=== PATIENT | male | born 1955 | race Caucasian/White ===

== ENCOUNTER 2019-12-24 16:16 | Observation (INO) | payer MEDICARE, SELFPAY ==
[2019-12-24] VITALS (11 sets, daily range): BP systolic 128–177; BP diastolic 73–90; PULSE 92–126; RESP 12–27; TEMP 36.7–37.7; O2SAT 92–100
--- NOTE | ~2019-12-24 | XR_ITS ---
EXAMINATION: XR chest 2V EXAM DATE: 12/24/2019 17:22 INDICATION: Increasing shortness of breath, cough. History COPD. TECHNIQUE: Frontal and lateral projections of the chest obtained and reviewed. There is no prior sydnie dy for comparison. FINDINGS: There is patchy left greater than right basilar airspace disease most likely multifocal pn eumonia, but please clinically correlate. There are 2 left upper lobe nodular densities likely granul omas. Recommend follow-up low-dose chest CT in one month after acute symptoms resolve. The main, cent ral pulmonary arteries are dilated which can indicate elevated pulmonary arterial pressure, pulmonary arterial hypertension. Normal heart size. Moderate hyperinflation. No pneumothorax or pleural effusi on. The bones are osteopenic. There are bony degenerative changes. IMPRESSION: 1. Multisegmental left basilar, smaller amount of right basilar airspace disease probably bronchopne umonia. 2. Two Left upper lobe nodular densities; recommend one-month follow-up low-dose chest CT after acut e symptoms resolve. Reviewed, dictated and finalized at location [facility] [employer] IMPRESSION: 1. Multisegmental left basilar, smaller amount of right basilar airspace disea se probably bronchopneumonia. 2. Two Left upper lobe nodular densities; recommend one-month follow-up low-do se chest CT after acute symptoms resolve.
--- NOTE | 2019-12-24 16:19 | ECG_ITS ---
Measurements Intervals [place] Rate: 120 P: 76 UT: 177 QRS: 57 QRSD: 100 T: 59 QT: 296 QTc: 420 Interpretive Statements SINUS TACHYCARDIA BASELINE ARTIFACT- I, II, III, AVR, AVL, AVF, V1-V6 ABNORMAL ECG Electronically Signed On 12-24-2019 17:18:14 [employer] by Anurag Salinas D.O.
[2019-12-24 16:34] LABS: Basophils Percent Auto 0.2 % (0.2-1.2); Eosinophils Percent Auto 0.1 % (0-4.4); Hematocrit 45.8 % (42.0-52.0); Hemoglobin 14.7 g/dL (14.0-18.0); Immature Granulocyte Absolute 0.09 K/mm3 (0.00-0.031); Immature Granulocyte Percent A 0.5 % (0-0.5); Lymphocytes Absolute Auto 0.91 K/mm3 (0.9-3.2); Lymphocytes Percent Auto 5.4 % (18.3-44.2); Mean Corpuscular HGB Conc 32.1 g/dl (32-36); Mean Corpuscular Hemoglobin 28.8 pg (26-34); Mean Corpuscular Volume 89.8 fl (80-100); Mean Platelet Volume 12.2 fl (7.4-10.4); Monocytes Absolute Auto 1.4 K/mm3 (0.1-0.6); Monocytes Percent Auto 8.2 % (2.6-8.5); Neutrophils Absolute Auto 14.5 K/mm3 (1.3-6.7); Neutrophils Percent Auto 85.6 % (45.5-73.1); Platelet Count Result 184 k/mm3 (150-375); Red Cell Distribution Width 12.5 % (11.5-14.5); White Blood Count 16.9 K/mm3 (4.5-10.0)
--- NOTE | 2019-12-24 16:37 | ED.SOB ---
HPI - SOB/Dyspnea General Chief Complaint: Shortness of Breath/Dyspnea Stated Complaint: SOB Time Seen by Provider: 12/24/19 16:21 Source: patient and RN notes reviewed Mode of arrival: EMS Limitations: no limitations History of Present Illness HPI Narrative: Pt is a 64 y/o male presenting to the ED c/o SOB with exertion. Pt reports he has been experiencing SOB with exertion for the past 10 days. Pt states he has a Hx of COPD and Emphysema, and notes he is currently taking Incruse, Advair, and Albuterol, but states he no longer has a nebulizzer. Pt states he normally walks about 30 minutes per day on the treadmill but has been unable to for the past 10 days. Pt also reports productive cough with green phlegm for 5 days, low-grade fever, and mild diarhhea, but denies N/V or BLE swelling. Pt states he presented to the ED today after calling his PCP reporting his Sx's have worsened and notes he was instructed to present here. Pt denies any Hx of Cardiovascular issues. Pertinent past history: COPD Onset (ago): day(s) () Associated symptoms: fever (Low-grade), cough (Productive with green phlegm) and other (Mild) Related Data Home Medications Medication Instructions Recorded Confirmed Vitamin D3 Complete 12/24/19 albuterol sulfate INHALATION 12/24/19 cetirizine [Zyrtec] mg 12/24/19 fluticasone propion-salmeterol INHALATION 12/24/19 [Advair Diskus] multivitamin 12/24/19 trazodone 12/24/19 umeclidinium [Incruse Ellipta] INHALATION 12/24/19 Allergies Allergy/AdvReac Type Severity Reaction Status Date / Time No Known Allergies Allergy Verified 12/24/19 16:41 Review of Systems Review of Systems: All systems reviewed & are unremarkable except as noted in HPI and below Constitutional: Constitutional: Reports fever(s) (Low-grade) Respiratory: Respiratory: Reports cough (Productive with green phlegm) and Reports dyspnea on exertion Gastrointestinal: Gastrointestinal: Reports diarrhea (Mild), Denies nausea and Denies vomiting Integumentary/Breasts: Skin/Breast: Denies swelling (BLE) PMFSH Past Medical History Medical History COPD (chronic obstructive pulmonary disease) Emphysema of lung Surgical History Surgical History No significant past surgical history Family History Family History Grandparent Family history of malignant neoplasm Father Family history of malignant neoplasm of urinary bladder Social History Social History Alcohol intake: never Gender identity (if verbalized by the patient): Male Exam Const: General: healthy appearing, no acute distress and well developed Nutritional Appearance: well nourished Orientation/consciousness: patient oriented x3 (alert) and Other orientation findings (Alert) Limitations: no limitations HENMT: Head: normocephalic and atraumatic Ears: external ears normal General nose exam: No nasal discharge present and no epistaxis Face and sinus: face symmetric Mouth: Yes lip normal and Yes tongue normal Throat: other (No exudate, no erythema) Eyes: Conjunctivae: conjunctivae normal Sclera: sclerae normal EOM: EOMs intact bilaterally Neck: Neck: full ROM and supple Thyroid: thyroid normal Chest: Chest palpation & inspection: no tenderness Resp: Auscultation: clear to auscultation bilaterally, no rales, no rhonchi, no wheezes, diminished lung sounds (Throughout) and other (breath sounds equal) Cardio: Rate: tachycardic Rhythm: regular rhythm Heart sounds: no gallops and no murmurs GI: Inspection: non-distended GI Palp: No abdominal tenderness and Yes Soft to palpation Auscultation: other (bowel sounds present) Back/Spine/Pelvis: Thoracic/Lumbar Spine: thoracic and lumbar spine normal to inspection Skin: General skin exam: normal color and no rashes or lesions noted Neuro: G
[2019-12-24 16:45] LABS: Blood Urea Nitrogen 16 mg/dL (9-20); Calcium 9.2 mg/dL (8.4-10.2); Carbon Dioxide 27 mmol/L (22-30); Chloride 93 mmol/L (98-107); Estimated Glomerular Filt Rate > 60; Glucose 127 mg/dL (75-110); Potassium 4.4 mmol/L (3.4-5.0); Sodium 136 mmol/L (137-145)
[2019-12-24] MEDS: IPRATROPIUM BR 0.02% INH SOLN 0.5 MG/2.5 ML VIAL INHALATION (17:02)
[2019-12-24] MEDS: ALBUTEROL SULFATE NEB 2.5 MG/0.5 ML INH 5 MG INHALATION (17:02)
[2019-12-24 17:45] LABS: NT Pro B Type Natriuretic Pept 175 PG/ML (5-100)
[2019-12-24] MEDS: LACTATED RINGERS 1,000 ML 999 ML IV CONT (20:09)
--- NOTE | 2019-12-24 22:25 | ADMGEN ---
This patient, Artur Hall, was admitted to Medical Room 255-. Patient/family oriented to hospital policies and general routines including ID bracelet, bed and alarms, visiting hours, pain management, procedures, bathroom and other care routines, personal items, smoking policy, room service/diet, and visiting hours. Valuables list has been completed. Information on how to activate the Rapid Response Team has been discussed. Patient/Family are encouraged to report perceived risks to care and to ask questions if they do not understand what they are told or what they should do.
[2019-12-24] MEDS: AZITHROMYCIN 250 MG TABLET 500 MG PO (22:42)
[2019-12-24] MEDS: LACTATED RINGERS 1,000 ML 125 ML IV CONT (22:43)
--- NOTE | 2019-12-24 23:37 | PM.IMHP ---
H&P: HPI History of Present Illness Chief complaint: pneumonia,copd,influenza Narrative: This is a pleasant 65 year old male with known end stage COPD, RA who presented to the hospital with a complaint of shortness of breath for the past 10 days with productive cough of greenish sputum for the past 4-5 days w/ intermittent fevers and wheezing. He has had generalized weakness and diarrhea. No nausea, vomiting or LE swelling. He denies any chest pain, palpitations, sore throat, ear pain, abdominal pain, dysuria, hematuria or rectal bleeding. The patient was evaluated in the ER tonight and found to have a WBC of 16,900. CXR demonstrated multisegmental left basilar, smaller amount of right basilar airspace disease probably bronchopneumonia and two Left upper lobe nodular densities. The patient tested positive for influenza in the ER. No other complaints. Review of Systems Review of Systems: All systems reviewed & are unremarkable except as noted in HPI and below PMFSH Past Medical History Medical History (Updated 12/25/19 @ 00:34 by Reagan Winter MD) Brain aneurysm COPD (chronic obstructive pulmonary disease) Emphysema of lung Rheumatoid arthritis Surgical History Surgical History No significant past surgical history Family History Family History Grandparent Family history of malignant neoplasm Father Family history of malignant neoplasm of urinary bladder Social History Social History Smoking status: Former smoker Alcohol intake: never Substance use: never Gender identity (if verbalized by the patient): Male Agree to blood products: Yes Meds Home Medications and Allergies Home Medications Medication Instructions Recorded Confirmed Type Vitamin D3 Complete 1 tab/day BYMOUTH DAILY 12/24/19 12/24/19 History albuterol sulfate See Rx Instructions .ROUTE .COMPLEX 12/24/19 12/24/19 History aspirin [Aspir-81] 81 mg PO DAILY 12/24/19 12/24/19 History cetirizine [Zyrtec] 10 mg PO DAILY 12/24/19 12/24/19 History fluticasone propion-salmeterol 1 inh INHALATION BID 12/24/19 12/24/19 History [Advair Diskus] multivitamin 1 tab/day BYMOUTH DAILY 12/24/19 12/24/19 History trazodone 75 mg PO HS PRN 12/24/19 12/24/19 History umeclidinium [Incruse Ellipta] 62.5 mcg INHALATION DAILY 12/24/19 12/24/19 History Allergies Allergy/AdvReac Type Severity Reaction Status Date / Time No Known Allergies Allergy Verified 12/24/19 16:41 Vital Signs Vital Signs - 24 hr 12/24/19 16:19 12/24/19 16:24 12/24/19 17:02 Temperature 37.2 C Pulse Rate 121 H 116 H 112 H Respiratory Rate 24 H 24 H Blood Pressure 177/90 H Pulse Oximetry 93 92 12/24/19 17:13 12/24/19 17:23 12/24/19 18:51 Temperature 37.7 C H 37.3 C Pulse Rate 113 H 126 H 106 H Respiratory Rate 24 H 26 H 27 H Blood Pressure 157/83 H 143/75 H Pulse Oximetry 93 94 12/24/19 19:17 12/24/19 20:13 12/24/19 21:09 Temperature 37.3 C Pulse Rate 99 96 98 Respiratory Rate 12 12 21 H Blood Pressure 135/74 135/81 135/81 Pulse Oximetry 100 96 100 12/24/19 22:00 12/24/19 22:02 Temperature 36.7 C 37.3 C Pulse Rate 102 H 92 Respiratory Rate 22 H 20 Blood Pressure 158/77 H 128/73 Pulse Oximetry 96 97 Exam Const: General: cooperative, alert, awake and anxious Nutritional Appearance: well nourished Orientation/consciousness: patient oriented x3 HENMT: Head: normal to inspection General nose exam: Normal external nose present Face and sinus: normal facial exam Mouth: Yes Normal oral and palatal mucosa present and Yes oropharynx normal Eyes: Pupils: Equal, round and reactive pupils present EOM: EOMs intact bilaterally Neck: Neck: supple and no JVD Thyroid: thyroid normal Lymphatic: lymphadenopathy not noted Resp: Effort & Inspection: normal respiratory effort Au
[2019-12-25] VITALS (12 sets, daily range): BP systolic 123–143; BP diastolic 67–71; PULSE 93–111; RESP 20–24; TEMP 36.1–38.1; O2SAT 95–98; BMI 23.8
[2019-12-25] MEDS: IPRATROPIUM BR 0.02% INH SOLN 0.5 MG/2.5 ML VIAL INHALATION ×4 (02:37→20:20)
[2019-12-25] MEDS: ALBUTEROL SULFATE NEB 2.5 MG/0.5 ML INH 5 MG INHALATION ×4 (02:37→20:18)
[2019-12-25 05:28] LABS: Basophils Percent Auto 0.1 % (0.2-1.2); Hematocrit 39.8 % (42.0-52.0); Hemoglobin 12.6 g/dL (14.0-18.0); Immature Granulocyte Absolute 0.04 K/mm3 (0.00-0.031); Immature Granulocyte Percent A 0.5 % (0-0.5); Lymphocytes Percent Auto 3.7 % (18.3-44.2); Mean Corpuscular HGB Conc 31.7 g/dl (32-36); Mean Corpuscular Hemoglobin 28.2 pg (26-34); Mean Platelet Volume 12.2 fl (7.4-10.4); Monocytes Absolute Auto 0.2 K/mm3 (0.1-0.6); Monocytes Percent Auto 2.9 % (2.6-8.5); Neutrophils Absolute Auto 7.5 K/mm3 (1.3-6.7); Neutrophils Percent Auto 92.8 % (45.5-73.1); Platelet Count Result 165 k/mm3 (150-375); Red Blood Count 4.47 M/mm3 (4.6-6.20); Red Cell Distribution Width 12.4 % (11.5-14.5)
[2019-12-25 05:40] LABS: Blood Urea Nitrogen 15 mg/dL (9-20); Calcium 8.7 mg/dL (8.4-10.2); Carbon Dioxide 29 mmol/L (22-30); Chloride 99 mmol/L (98-107); Estimated CRCL calculation 106 ml/min; Estimated Glomerular Filt Rate > 60; Glucose 159 mg/dL (75-110); Potassium 4.2 mmol/L (3.4-5.0); Sodium 135 mmol/L (137-145)
[2019-12-25] MEDS: MULTIVITAMINS THERAPEUTIC TAB (*BKC) 1 TABLET PO (08:26)
[2019-12-25] MEDS: LORATADINE 10 MG TABLET PO (08:27)
[2019-12-25] MEDS: predniSONE 20 MG TABLET 60 MG PO (08:27)
[2019-12-25] MEDS: ASPIRIN 81 MG ENTERIC TABLET PO (08:27)
[2019-12-25] MEDS: LACTATED RINGERS 1,000 ML 125 ML IV CONT (08:31)
--- NOTE | 2019-12-25 12:48 | PM.IMPN ---
Progress Note: A&P Assessment and Plan (1) Pneumonia: Qualifiers: Laterality: unspecified laterality Lung location: unspecified part of lung Pneumonia type: due to unspecified organism Qualified Code(s): J18.9 - Pneumonia, unspecified organism Code(s): J18.9 - Pneumonia, unspecified organism Status: Acute Assessment and Plan: -----Continue ceftriaxone, azithromycin, and oral prednisone. Pt is at 4L o2 which is his baseline. He still feels uncomfortable and is high risk to go home today. If he does well overnight, may discharge tomorrow. Blood cultures not drawn on admission--pt WBC is normal, no fever, and has already had abx but since he came in septic we will draw them now although probably will be negative. Sputum cx ordered as well. Hyperglycemia could be d/t steroids but will draw A1C tomorrow. -Will do a follow up CT in one month as suggested on CXR. (2) Influenza A: Code(s): J10.1 - Influenza due to other identified influenza virus with other respiratory manifestations Status: Acute Assessment and Plan: ------outside tx window. Continue supportive therapy. (3) COPD exacerbation: Code(s): J44.1 - Chronic obstructive pulmonary disease with (acute) exacerbation Status: Acute Assessment and Plan: ------See above. continue abx, bronchodilators, and prednisone. (4) Sepsis: Qualifiers: Sepsis type: sepsis due to unspecified organism Sepsis acute organ dysfunction status: without acute organ dysfunction Qualified Code(s): A41.9 - Sepsis, unspecified organism Code(s): A41.9 - Sepsis, unspecified organism Status: Acute Assessment and Plan: -----Initially with with tachycardia and leukocytosis. Source of sepsis appears to be pulmonary. Continue to monitor vital signs and urine output. blood and sputum cultures ordered now. lactic acid normal. Continue IV antibiotics. (5) Leukocytosis: Qualifiers: Leukocytosis type: unspecified Qualified Code(s): D72.829 - Elevated white blood cell count, unspecified Code(s): D72.829 - Elevated white blood cell count, unspecified Status: Acute Assessment and Plan: -----resolved. secondary to pneumonia. Monitor CBCd. Additional Plan Date of service was 12/24/2019 at 23:00 hrs. Time Spent With Patient Time with patient: 25 - 35 minutes Subjective Date/time seen: 12/25/19 12:48 Interval history: Pt is a 64-year-old male here for pneumonia and influenza. Patient was seen today not bringing up anything at this time. He feels short of breath just sitting up and he says this is pretty much his baseline now. He denies nausea, vomiting, fevers, chills, diarrhea, constipation, headache or chest pain. He says he is using more oxygen than he normally needs to but his new baseline is around 3-4 L. When he exerts himself he has to lose use up to 8 L. He feels improvement today but not ready to go home as he still feels significantly short of breath. He sees a social secretary q6 months in [facility]. he takes no immunosupressants for his RA. Review of Systems Review of Systems: All systems reviewed & are unremarkable except as noted in HPI and below Exam Narrative: Exam Narrative: General: Barrel-chested man resting comfortably in bed with elevated respiratory rate in no acute distress HEENT: normocephalic Neck: supple Neuro: Alert and oriented x4 CV:unable to auscultate heart sounds d/t body habitus. radial pulse normal rhythm and rate. Resp:Significantly decreased breath sounds. Elevated RR, barrel chest. on 4L. able to speak in full sentences. Abd: Soft, non distended. No pain to palpation. Positive bowel sounds Extremities: No swelling, erythema, or pain to palpation. Objective Data Vital Signs Vital Signs: Vital Signs - 24 hr 12/24/19 16:19 12/24/19 16:24 12/24/19 17:02 Temperature 98.9 F Pulse Rate 121 H 116 H 112 H Respirator
--- NOTE | 2019-12-25 16:31 | PC.NURSE ---
On 12/25/19, the graduate nurse Anant Baeza RN, provided care and completed [facility] documentation on this patient. I have reviewed the student's documentation and agree with the findings.
[2019-12-25] MEDS: AZITHROMYCIN 250 MG TABLET 500 MG PO (17:03)
--- NOTE | 2019-12-25 17:50 | PC.NURSE ---
Sent patient's Ellipta inhaler through the tube system to be verified by pharmacy.
--- NOTE | 2019-12-25 19:06 | PHAR ---
The patient's home med of Umeclidinium [Incruse Ellipta] 62.5 MCG has been verified.
[2019-12-26] VITALS (8 sets, daily range): BP systolic 107–137; BP diastolic 64–72; PULSE 83–94; RESP 20; TEMP 36.6–37.1; O2SAT 93–96
[2019-12-26] MEDS: ALBUTEROL SULFATE NEB 2.5 MG/0.5 ML INH 5 MG INHALATION ×3 (02:16→14:36)
[2019-12-26] MEDS: IPRATROPIUM BR 0.02% INH SOLN 0.5 MG/2.5 ML VIAL INHALATION ×3 (02:17→14:37)
[2019-12-26 06:06] LABS: Hematocrit 37.1 % (42.0-52.0); Mean Corpuscular HGB Conc 32.3 g/dl (32-36); Mean Corpuscular Hemoglobin 28.6 pg (26-34); Mean Corpuscular Volume 88.3 fl (80-100); Mean Platelet Volume 12.8 fl (7.4-10.4); Platelet Count Result 173 k/mm3 (150-375); Red Cell Distribution Width 12.7 % (11.5-14.5); White Blood Count 11.8 K/mm3 (4.5-10.0)
[2019-12-26 06:18] LABS: Blood Urea Nitrogen 18 mg/dL (9-20); Calcium 8.4 mg/dL (8.4-10.2); Carbon Dioxide 35 mmol/L (22-30); Chloride 96 mmol/L (98-107); Estimated CRCL calculation 92 ml/min; Estimated Glomerular Filt Rate > 60; Glucose 123 mg/dL (75-110); Potassium 3.6 mmol/L (3.4-5.0); Sodium 140 mmol/L (137-145)
[2019-12-26 06:31] LABS: Hemoglobin A1C 5.6 % (<5.7)
[2019-12-26] MEDS: LORATADINE 10 MG TABLET PO (08:23)
[2019-12-26] MEDS: MULTIVITAMINS THERAPEUTIC TAB (*BKC) 1 TABLET PO (08:23)
[2019-12-26] MEDS: ASPIRIN 81 MG ENTERIC TABLET PO (08:23)
[2019-12-26] MEDS: predniSONE 20 MG TABLET 60 MG PO (08:24)
[2019-12-26 11:40] LABS: Vancomycin Trough 11.3 ug/mL (10.0-20.0)
--- NOTE | 2019-12-26 15:37 | PM.DS ---
DS: Diagnosis Admitting Diagnosis Admitting Diagnosis: Pneumonia, unspecified organism Discharge Diagnosis (1) Pneumonia: Qualifiers: Laterality: unspecified laterality Lung location: unspecified part of lung Pneumonia type: due to unspecified organism Qualified Code(s): J18.9 - Pneumonia, unspecified organism Code(s): J18.9 - Pneumonia, unspecified organism Status: Acute Assessment and Plan: -----Pt received ceftriaxone, azithromycin, vanc and oral prednisone. He is doing well and 'feeling the best he has in awhile' and plans to f/u with his pcp in 1-2 weeks about this stay. he is going to get a follow up CT in one month and I spoke with Dr. Vanessa personally about this. Pt is at 4L o2 which is his baseline. Blood cultures still pending and will monitor until finaliazed. he did have a fever overnight but said he was worked up when it was happening and has not had a fever today. (2) Influenza A: Code(s): J10.1 - Influenza due to other identified influenza virus with other respiratory manifestations Status: Acute Assessment and Plan: ------Continue supportive therapy. (3) COPD exacerbation: Code(s): J44.1 - Chronic obstructive pulmonary disease with (acute) exacerbation Status: Acute Assessment and Plan: ------See above. continue abx, bronchodilators, and prednisone. (4) Sepsis: Qualifiers: Sepsis type: sepsis due to unspecified organism Sepsis acute organ dysfunction status: without acute organ dysfunction Qualified Code(s): A41.9 - Sepsis, unspecified organism Code(s): A41.9 - Sepsis, unspecified organism Status: Acute Assessment and Plan: -----Initially with with tachycardia and leukocytosis. Source of sepsis appears to be pulmonary.lactic acid normal. Non toxic appearing. (5) Leukocytosis: Qualifiers: Leukocytosis type: unspecified Qualified Code(s): D72.829 - Elevated white blood cell count, unspecified Code(s): D72.829 - Elevated white blood cell count, unspecified Status: Acute Assessment and Plan: -----improved. slightly elevated d/t steroids. DS: Summary Hospital Course Reason for hospitalization: influenza, pna, copd exacerbation. Hospital Course: Pt is a 64 y/o who has significant COPD and on chronic oxygen who presented emergency room for shortness of breath with exertion and worsening of his COPD. Initial white blood cell count 16.9. Influenza A positive. Chest x-ray showed multi segmental left basilar and small amount of right basilar airspace disease probably pneumonia. He also had 2 left upper lobe nodule densities and the radiologist recommended CT of the chest in about a month. EKG showed sinus tachycardia with no ST changes. Patient was placed on prednisone, IV antibiotics and was admitted to the hospitalist service. The patient improved with this therapy after 2 days of being hospitalized and felt great. He said he feels as good as he has in a long time and would like to continue his treatment at home. The patient was technically septic since his white blood cell count was elevated on admission with tachycardia but I suspect that he always has tachycardia and/high respiratory rate because of his underlying severe lung disease. However, blood cultures were drawn and are pending today but will be monitored until finalized. His white blood cell count improved day of discharge 11.8 and is probably still elevated due to steroids. Him and his were educated about the worrisome signs and symptoms to come back to the ER for. he is to follow up with Dr. Paresh Vanessa in 1-2 weeks for follow up. I called and talked to Dr. Vanessa and he agreed to f/u with a CT of his chest in one month. The patient was educated about the worrisome signs symptoms come back to emergency room for and was discharged stable condition. Status at Discharge Overall status a
--- NOTE | 2020-01-02 14:01 | PC.NURSE ---
Blood cx is negative.
== END 2019-12-26 16:08 | disposition home or self-care (01) ==
LOC: ANHED 21:21 → ANH2MED 21:44
PROVIDERS: Physician Assistant; Admitting Provider Family Medicine; Emergency Provider Emergency Medicine; Visit Provider Internal Medicine
DX: A41.9 Sepsis, unspecified organism (principal); J10.00 Influenza due to other identified influenza virus with unspecified type of pneumonia; J43.9 Emphysema, unspecified; M06.9 Rheumatoid arthritis, unspecified; Z79.82 Long term (current) use of aspirin; Z79.899 Other long term (current) drug therapy; Z86.79 Personal history of other diseases of the circulatory system; Z99.81 Dependence on supplemental oxygen
CPT/HCPCS: 36415; 71046; 80048; 80202; 83036; 83880; 85025; 85027; 87040; 87804; 93005; 94640; 96361; 96365; 96366; 96367; 96375; 99285; A9270; G0378; J0696; J1100; J3370; J7120; J7512

== ENCOUNTER 2025-04-17 12:34 | Emergency (ER) | payer MEDICARE, SELFPAY ==
--- NOTE | ~2025-04-17 | CT_ITS ---
EXAM: CT brain wo con - 04/17/2025 14:48 CDT History: 69 years old Male with dizziness COMPARISON: None available. PROCEDURE: CT of the head without contrast. Axial, sagittal and coronal reformatted planes were angelia luated. Automatic exposure control was used for this study. FINDINGS: BRAIN PARENCHYMA: The left middle cerebral artery appears somewhat dense and may represent dense MCA sign. No acute hemorrhage. No mass effect or herniation. Melendez-white matter differentiation is maintained. M ild chronic volume loss. Scattered hypodensities in subcortical and periventricular white matter, lik adri representing chronic microvascular ischemic changes in this age group. Atherosclerotic calcificat ion of the intracranial vessels is noted. VENTRICLES/ EXTRA-AXIAL SPACES: No hydrocephalus or extra-axial fluid collection. EXTRACRANIAL STRUCTURES: No calvarial fracture. IMPRESSION: The left middle cerebral artery appears somewhat dense and may represent dense MCA sign in appropriat e clinical settings of a acute stroke. CTA versus MRA can be performed for further evaluation, as cli nically indicated. These findings were communicated to Aleyda Vieira MD by Dr. Xenia Andre, on 04/17/2025 14:56 CD T at who expressed understanding. Reviewed, dictated and finalized at location A. IMPRESSION: The left middle cerebral artery appears somewhat dense and may represent dense MCA sign in appropriate clinical settings of a acute stroke. CTA versus MRA can be performed for further evaluation, as clinically indicated. These findings were communicated to Aleyda Vieira MD by Dr. Xenia Andre, on 04/17/2025 14:56 CDT at who expressed understanding.
--- NOTE | ~2025-04-17 | CT_ITS ---
CT diagnostic chest wo con Ordering provider: Aleyda Vieira MD History: 69 years Male with . cough, congestion; Dysp on exrtion; xray findings . Comparison: None. Technique: CT chest without IV contrast. Radiation reduction technique utilized. The dose-length prod uct was 251.59 mGy-cm. FINDINGS: VISUALIZED THORACIC INLET: Normal. MEDIASTINUM: Aorta/coronary arteries: Mild atheromatous disease. Heart/other: The heart is not enlarged. Lymph nodes: No mediastinal or hilar adenopathy. LUNGS: Extensive centrilobular emphysematous changes are seen bilaterally. Minimal thickening of the septa in the lower lobes is noted which may indicate superimposed pneumonitis more prominent on the l eft. No pulmonary masses. Focal areas of atelectasis with calcifications are seen in the left upper l obe. No pleural base nodule in the area cannot be excluded although less likely. Follow-up CT in 6 mo nths is advised. No effusions. No pneumothorax. VISUALIZED UPPER ABDOMEN: the visualized upper abdomen is normal. MUSCULOSKELETAL: Soft tissues: The superficial soft tissues are normal. Bones: Age appropriate degenerative changes of the spine. Severe kyphosis centered in the midthoracic area. Multilevel old compression fractures. IMPRESSION: 1. Extensive centrilobular emphysematous changes of the lungs. 2. Thickening of the septa in the lower lobes which may indicate pneumonitis. Follow-up advised. 3. Focal areas of atelectasis seen in the left upper lobe. The possibility of pleural base nodule ca nnot be excluded although less likely 6 months follow-up CT is advised. 4. Severe kyphosis. Multilevel old compression fractures. Reviewed, dictated and finalized at location A. IMPRESSION: 1. Extensive centrilobular emphysematous changes of the lungs. 2. Thickening of the septa in the lower lobes which may indicate pneumonitis. Follow-up advised. 3. Focal areas of atelectasis seen in the left upper lobe. The possibility of pleural base nodule cannot be excluded although less likely 6 months follow-up CT is advised. 4. Severe kyphosis. Multilevel old compression fractures.
--- NOTE | ~2025-04-17 | CT_ITS ---
CTA brain carotid Ordering provider: Aleyda Vieira MD History: . dizziness . Comparison: None. Reference is made to a CT examination of the brain performed approximately 1 hour e michelle which demonstrated a dense MCA sign. Technique: CT angiogram head and neck was performed following timed intravenous injection of contrast . Thin slice axial images and reformatted coronal images were obtained. Three dimensional reformatted images of the brain were also obtained using a [employer] workstation. FINDINGS: HEAD: --ANTERIOR AND MIDDLE CEREBRAL ARTERIES AND BRANCHES: Normal caliber and contour within the left midd le cerebral artery and anterior cerebral artery. 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 Prior imaging is requested in order to evaluate progression of this finding. The petrous portion of the right internal carotid artery measures 4.6 mm in maximal dimension. No aneurysmal dilatation is identified within the left internal carotid artery along its entirety. No significant stenosis is noted. --BASILAR ARTERY AND BRANCHES: Normal caliber and contour. No significant atheromatous disease. --POSTERIOR CEREBRAL ARTERIES: Normal caliber and contour --POSTERIOR COMMUNICATING ARTERIES: Present and unremarkable. --ANEURYSM: As above --BRAIN: Please refer to report of CT head performed the same day. --BONES AND SUPERFICIAL SOFT TISSUES: Please refer to report of CT head performed the same day. --PARANASAL SINUSES AND MASTOIDS: Please refer to report of CT head done the same day. NECK: --RIGHT CERVICAL CAROTID SYSTEM: No significant atheromatous disease of the carotid bulb and proximal internal carotid artery is identified. Marked tortuosity of the right internal carotid artery is ivon ntified within its cervical portion, without significant stenosis. The right internal carotid artery once it undergoes branching courses back upon itself in almost a [id number] pattern prior to ent ering the petrous portion. Percent stenosis per NASCET criteria is 0% No carotid dissection. --LEFT CERVICAL CAROTID SYSTEM: Normal caliber and contour. Percent stenosis per NASCET criteria is 0% No carotid dissection. --VERTEBRAL ARTERIES: Normal caliber and contour. --VISUALIZED AORTIC ARCH AND BRANCHING VESSELS: Normal caliber and contour. No significant atheromato us disease. --SOFT TISSUES: Unremarkable. --CERVICAL SPINE: Age advanced degenerative changes. IMPRESSION: Percent stenosis per NASCET criteria is 0% bilaterally. A dense MCA sign is a valuable albeit not perfectly sensitive indicator of acute ischemic cerebral in farction. A hyperdense MCA may be seen with elevated hemoglobin (as in our patient) without pathology . Of concern, with this patient, is the aneurysmal dilatation of the central portions of the right inte rnal carotid artery. In this patient's history. He describes a brain aneurysm, therefore prior imagin g must be available (somewhere). Comparison is strongly recommended in order to evaluate the need for treatment. Typically, greater than 7 mm poses a high risk of rupture. Referral for endovascular treatment evaluation is recommended. These findings and recommendations were given to Dr. Vieira at 5:00 PM on 04/17/2025 Reviewed, dictated and finalized at location A. IMPRESSION: Percent stenosis per NASCET criteria is 0% bilaterally. A dense MCA sign is a valuable albeit not perfectly sensitive indicator of acut e ischemic cerebral infarction. A hyperdense MCA may be seen with elevated hemo globin (as in our patient) without pathology. Of concern, with this patient, is the aneurysmal dilatation of the central port ions of the right internal carotid artery. In this patient's history. He descri bes a brain aneurysm, therefore prior imaging must be available (somewhere). Comparison is strongly recommended in order to evaluate the need for treatment. Typically, greater than 7 mm poses a high risk of rupture. Referral for endovascular treatment evaluation is recommended. These findings and recommendations were given to Dr. Vieira at 5:00 PM on 2024
--- NOTE | ~2025-04-17 | XR_ITS ---
EXAM/PROCEDURE: XR chest 2V - 04/17/2025 12:20 CDT HISTORY: 69 years old Male with weakness, HX OF COPD AND EMPHYSEMA, PREVIOUS SMOKER TECHNIQUE: Two view(s) of the chest. COMPARISON: None available. FINDINGS: LUNGS/ PLEURA: Lungs are hyperinflated with flattening of the diaphragm and increased lung markings i n both upper lobes, findings seen with COPD. No appreciable pneumothorax or large pleural effusion. B ibasilar airspace opacities, left greater than right. Linear opacities in the left midlung zone likel y represents scarring. HEART/ MEDIASTINUM: Heart appears normal in size. BONES: Degenerative changes. OTHER: Visualized upper abdomen is unremarkable. IMPRESSION: COPD. Bibasilar opacities may represent atelectasis, scarring versus pneumonia in the appropriate cli nical settings. Clinical correlation is recommended. Short-term chest radiograph is recommended after appropriate clinical therapy. Reviewed, dictated and finalized at location A. IMPRESSION: COPD. Bibasilar opacities may represent atelectasis, scarring versus pneumonia in the appropriate clinical settings. Clinical correlation is recommended. Shor t-term chest radiograph is recommended after appropriate clinical therapy.
[2025-04-17 12:46] VITALS: BP 136/68; PULSE 88; RESP 18; TEMP 36.6; O2SAT 95
--- NOTE | 2025-04-17 12:51 | ECG_ITS ---
Test Date: 2025-04-17 13:03:54 Measurements Intervals [place] Rate: 85 P: 75 MN: 157 QRS: 67 QRSD: 88 T: 70 QT: 346 QTc: 413 Interpretive Statements SINUS RHYTHM BASELINE ARTIFACT- I,II, III, AVR, AVL, AVF, V1-V6 NORMAL ECG No previous ECG available for comparison Electronically Signed On 04-17-2025 13:16:29 CDT by Anurag Salinas D.O.
[2025-04-17 13:20] LABS: Basophils Percent Auto 0.6 % (0.2-1.2); Eosinophils Percent Auto 0.3 % (0-4.4); Hematocrit 48.3 % (42.0-52.0); Hemoglobin 15.2 g/dL (14.0-18.0); Immature Granulocyte Absolute 0.01 K/mm3 (0.00-0.031); Immature Granulocyte Percent A 0.1 % (0-0.5); Lymphocytes Absolute Auto 0.72 K/mm3 (0.9-3.2); Mean Corpuscular HGB Conc 31.5 g/dl (32-36); Mean Corpuscular Hemoglobin 29.1 pg (26-34); Mean Corpuscular Volume 92.4 fl (80-100); Mean Platelet Volume 11.7 fl (7.4-10.4); Monocytes Absolute Auto 0.5 K/mm3 (0.1-0.6); Monocytes Percent Auto 6.7 % (2.6-8.5); Neutrophils Absolute Auto 5.9 K/mm3 (1.3-6.7); Neutrophils Percent Auto 82.3 % (45.5-73.1); Platelet Count Result 182 k/mm3 (150-375); Red Blood Count 5.23 M/mm3 (4.6-6.20); Red Cell Distribution Width 13.1 % (11.5-14.5); White Blood Count 7.2 K/mm3 (4.5-10.0)
[2025-04-17 13:30] LABS: Alanine Aminotransferase 19 U/L (6-50); Albumin Level 4.5 g/dL (3.5-5.1); Alkaline Phosphatase 50 U/L (38-126); Anion Gap 9 mmol/L (4-12); Aspartate Amino Transferase 28 U/L (17-59); Bilirubin,Total 0.5 mg/dL (0.2-1.3); Blood Urea Nitrogen 16 mg/dL (9-20); Calcium 9.4 mg/dL (8.4-10.2); Carbon Dioxide 30 mmol/L (22-30); Chloride 100 mmol/L (98-107); Estimated Glomerular Filt Rate > 60; Glucose 130 mg/dL (65-110); Potassium 4.2 mmol/L (3.4-5.0); Sodium 139 mmol/L (137-145); Total Protein 8.4 g/dL (6.3-8.2)
[2025-04-17 13:42] LABS: Troponin I < 0.012 ng/mL (0.000-0.034)
--- NOTE | 2025-04-17 14:17 | ED.DIZZY ---
HPI - Dizziness General Chief Complaint: Dizziness Stated Complaint: dizzy, n/v Time Seen by Provider: 04/17/25 13:38 Source: patient and family Mode of arrival: ambulatory Limitations: no limitations History of Present Illness HPI Narrative: Patient presents with report of acute onset dizziness associated with nausea starting at 10:00 a.m.. This happened as he was walking to the car. He had been walking before this so there were no preceding position changes and no distinct head position changes. He was on his way to see his primary care physician Dr Hay but decided to come to the emergency department instead. He was going to his primary care physician's because he has been feeling congested and coughing, particularly over the last month but worsening recently. He has a history of emphysema for which he is on 2 liters/minute chronically. He has been more short of breath especially with exertion lately causing him to occasionally increase his oxygen. It was hot outside. His external grinder tender is Dr Pal. He has had decreased PO intake though primarily water. This is partially because the more water he drinks the more he has to urinate and this means more walking to the bathroom causing him to get winded. He especially limited his hydration today because he didn't want this to be an issue around the time of his PCP appointment. No edema. No unilateral symptoms, facial droop, slurred speech. No fevers/chills. Not on anticoagulation, only 81mg ASA. For emphysema uses albuterol PRN but typically q4 hrs, Incruz, Advair 2 puffs BID. He has been coughing and feeling drained for the past 6 months but especially over the last month. Cough at times with yellow/green sputum. Gets dyspeneic on exertion. Had pain on the side of his chest a few weeks ago. Describes his dizziness as lightheadedness but no dysequilibrium or rotational/spinning. His external grinder tender had prescribed azithromycin which he had picked up but hadn't yet started - wanted to talk with his PCP today about it. No blurred vision but does feel like have to strain more; no diplopia. No ear pain, hearing changes or tinnitus. Typically on 2L NC for emphysema but did self titrate up at times with exertion. Related Data Home Medications ?Medication ?Instructions ?Recorded ?Confirmed ?Last Taken ?Type Vitamin D3 Complete 1 tab/day BYMOUTH DAILY 12/24/19 12/24/19 Unknown History albuterol sulfate 90 mcg/actuation See Rx Instructions .Route .COMPLEX 12/24/19 12/24/19 Unknown History aerosol inhaler aspirin 81 mg tablet,delayed 81 mg PO DAILY 12/24/19 12/24/19 Unknown History release (Aspir-) cetirizine 10 mg capsule (Zyrtec) 10 mg PO DAILY 12/24/19 12/24/19 Unknown History fluticasone 500 mcg-salmeterol 50 1 inh inhalation BID 12/24/19 12/24/19 Unknown History mcg/dose blistr powdr for inhalation (Advair Diskus) multivitamin 1 tab/day BYMOUTH DAILY 12/24/19 12/24/19 Unknown History trazodone 150 mg tablet 75 mg PO HS PRN SLEEP 12/24/19 12/24/19 Unknown History umeclidinium 62.5 mcg/actuation 62.5 mcg inhalation DAILY 12/24/19 12/24/19 Unknown History blister powder for inhalation (Incruse Ellipta) Allergies Allergy/AdvReac Type Severity Reaction Status Date / Time No Known Allergies Allergy Verified 12/24/19 16:41 [facility] Past Medical History Medical History Dependence on supplemental oxygen Rheumatoid arthritis Brain aneurysm Emphysema of lung COPD (chronic obstructive pulmonary disease) Surgical History Surgical History No significant past surgical history Family History Family History Grandparent Family history of malignant neoplasm Father Family history of malignant neoplasm of urinary bladder Social History Social History Smoking status: Former smoker Alcohol intake: never Substance use: never Living arrangements: with family Gender identity (if verbalized by the patient): Male Agree to blood products: Yes Exam Narrative: GENERAL: Well-appearing, well-nourished, and in no acute distress. HEAD: Normocephalic, atraumatic. EYES: Non injected, non icteric. EOMI without vertical or horizontal nystagmus. ENT: Nares clear, no rhinorrhea or epistaxis. Gross auditory acuity intact. External auditory canals without erythema, vesicles. TMs without bulging. no obstructing/obscuring/impacted cerumen. Scant fluid behind L TM. NECK: Supple. No meningismus. CHEST: Speaking in full sentences. No respiratory distress. Lungs with basilar expiratory wheeze on the right. HEART: Regular rate and rhythm. . ABDOMEN: Soft, nondistended. No rigidity or guarding. Not peritoneal EXTREMITIES: Normal range of motion. No lower extremity edema. SKIN: Warm, dry, no rash. NEURO: No focal deficits. Alert and oriented. Answering questions. Following commands. Normal speech without aphasia or dysarthria. PSYCH: Normal mood and affect. Course Vital Signs Vital signs: Vital Signs Temperature 97.9 F 04/17/25 12:46 Pulse Rate 88 04/17/25 12:46 Respiratory Rate 18 04/17/25 12:46 Blood Pressure 136/68 04/17/25 12:46 Pulse Oximetry 95 04/17/25 12:46 Oxygen Delivery Nasal Cannula 04/17/25 12:46 Oxygen Flow Rate 2 04/17/25 12:46 Temperature 97.9 F 04/17/25 12:46 Pulse Rate 95 04/17/25 18:51 Respiratory Rate 13 04/17/25 18:51 Blood Pressure 101/86 04/17/25 18:51 Pulse Oximetry 98 04/17/25 18:51 Oxygen Delivery Nasal Cannula 04/17/25 12:46 Oxygen Flow Rate 2 04/17/25 12:46 MDM - Dizziness MDM Narrative Medical decision making narrative: Patient presents with acute onset dizziness/lightheadedness associated with nausea today. In the emergency department they are afebrile with vital signs within normal limits. DIFFERENTIAL DIAGNOSIS Central causes: infection ( encephalitis, meningitis, cerebritis); vertebrobasilar arterial insufficiency, subclavian steal syndrome, cerebellar or brainstem hemorrhage or infarction, vertebrobasilar migraine, trauma ( temporal bone fracture, post concussive syndrome); tumor (brainstem or cerebellum); MS; temporal lobe epilepsy Peripheral causes: Foreign body, cerumen impaction, acute otitis media, labyrinthitis, benign paroxysmal positional vertigo, Meniere's disease, vestibular neuronitis, perilymphatic fistula, trauma, motion sickness, acoustic neuroma, ototoxic medications Although does not sound to be BPPV, meclizine ordered given antiemetic properties. Duoneb ordered for wheezes as well as azithromycin for COPD with cardinal change of the quality of cough that is new and the need to occasionally uptitrate O2 at home. Radiology called me regarding hyperdensity seen. Possible MCA stroke though radiologist of non con did note can be seen in elevated hemoglobin (patient's level is normal though delta had increased from 12 to 15 between lab values). The initial plan was to proceed with CTA brain carotid, the timing of which was to be determined based on the results of the D-dimer in regards to whether CTA PE study would need to be performed 1st. Dimer is normal. CTA brain carotid will be performed followed by CT chest. I did discuss the timing and protocols with radiology therapist. Patient was out of room when I attempted to re-evaluate him. I was then informed that he was dizzy while on the CT table. 2nd line Medication for dizziness valium ordered. Patient reassessed approximately 4:30 p.m. and he does state that he is feeling much better. On auscultation he does have bilateral wheezes at this time, I suspect because airways are actually opening more and he is less tight. Albuterol ordered. CTA as below. Patient states he knew about the aneurysm. He has never seen a neurosurgeon or specialist for it. It was initially discovered by his previous primary care physician before 2019. He had since had another CT scan at some time in the interim although these records are not available to us currently. His PCP and external grinder tender are both through [facility]. Had initially ordered carotid US but notified by tech that CTA brain carotid supercedes and is considered gold standard of evaluation. Discussed with Dr Lee with neurology at [facility]. Neurology is sometimes asked to answer these pages as they get routed to them on behalf of neurointerventional radiology. Able to compare today's to Previous imaging, as recently as 2022. R ICA measured 12 x 8 x 8 at that time; thus, Measurements larger in the past. Given this, it has been appreciated previously and appears very stable. Recommend referral to neurosurgery outpatient to Maintain continuity and perform continued monitoring/have guidance about at what intervals this should be reassessed. Discussed this with patient and his who verify understanding and feel comfortable with this plan. Provided disc as I did not know if images that were pushed to [facility] remained part of his record. Has rescheduled his PCP appointment he was supposed to go to today and will address it at that time. Advised he could take the short course of azithromycin his external grinder tender had recently prescibed. Denied needing refills of any of his other COPD meds. We discussed the importance of staying hydrated as that can contribute to dizziness, especially given the heat and the insensible losses of fluids from increased breathing / (panting), evaporation from sweat, etc. He notes that the valium really helped and is asking about using that medication again. We discussed the mechanism of action and the risks/benefits. Discussed that it is a controlled substance and has fall potential and that, similar to him limiting his hydration to avoid having to go to the bathroom as frequently (which I did not advise), would want him to be cognizant of the fall risk so that when getting up to go to the bathroom he does so carefully/thoughtfully. Extensive shared decision making. He and verify understanding. Otherwise stable for discharge. Lab Data Attestation: I reviewed the patient's lab results. Lab results narrative: No leukocytosis. Normal renal function. 04/17/25 13:09 04/17/25 13:09 Labs: Lab Results 04/17/25 04/17/25 04/17/25 Range/Units 13:08 13:09 14:33 WBC 7.2 (4.5-10.0) K/mm3 RBC 5.23 (4.6-6.20) M/mm3 Hgb 15.2 D (14.0-18.0) g/dL Hct 48.3 (42.0-52.0) % MCV 92.4 (80-100) fl MCH 29.1 (26-34) pg MCHC 31.5 L (32-36) g/dl RDW 13.1 (11.5-14.5) % Plt Count 182 (150-375) k/mm3 MPV 11.7 H (7.4-10.4) fl Immature Gran % (Auto) 0.1 (0-0.5) % Neut % (Auto) 82.3 H (45.5-73.1) % Lymph % (Auto) 10.0 L (18.3-44.2) % [place] % (Auto) 6.7 (2.6-8.5) % Eos % (Auto) 0.3 (0-4.4) % Baso % (Auto) 0.6 (0.2-1.2) % Lymph # (Auto) 0.72 L (0.9-3.2) K/mm3 [place] # (Auto) 0.5 (0.1-0.6) K/mm3 Eos # (Auto) 0.0 (0-0.3) K/mm3 Baso # (Auto) 0.0 (0.0-0.1) K/mm3 Abs Immat Gran (auto) 0.01 (0.00-0.031) K/mm3 Absolute Neuts (auto) 5.9 (1.3-6.7) K/mm3 Absolute Nucleated RBC 0.000 (0.0-0.012) K/mm3 Nucleated RBC % 0.0 (0.0-0.2) % D-Dimer 0.32 (<0.48) ug/mL Sodium 139 (137-145) mmol/L Potassium 4.2 (3.4-5.0) mmol/L Chloride 100 (98-107) mmol/L Carbon Dioxide 30 (22-30) mmol/L Anion Gap 9 (4-12) mmol/L BUN 16 (9-20) mg/dL Creatinine 0.74 (0.7-1.3) mg/dL Estim Creat Clear Calc Not Reportable Estimated GFR > 60 (59 - ) Glucose 130 H (65-110) mg/dL Calcium 9.4 (8.4-10.2) mg/dL Total Bilirubin 0.5 (0.2-1.3) mg/dL AST 28 (17-59) U/L ALT 19 (6-50) U/L Alkaline Phosphatase 50 (38-126) U/L Troponin I < 0.012 (0.000-0.034) ng/mL NT-Pro-B Natriuret Pep 63 (19.9-100) pg/mL Total Protein 8.4 H (6.3-8.2) g/dL Albumin 4.5 (3.5-5.1) g/dL Urine Color Yellow (Yellow) Urine Appearance Clear (Clear) Urine pH 7.0 (5.0-9.0) Ur Specific [place] 1.020 (1.001-1.035) Urine Protein Negative (Negative) mg/dL Urine Glucose (UA) Negative (Negative) mg/dL Urine Ketones Negative (Negative) mg/dL Ur Blood (Man) Negative (Negative) Urine Nitrate Negative (Negative) Urine Bilirubin Negative (Negative) Urine Urobilinogen 1.0 (<2.0) mg/dL Leukocyte Esterase Rfl Negative (Negative) SAM/UL Influenza A (RT-PCR) Negative (Negative) Influenza B (RT-PCR) Negative (Negative) RSV (RT-PCR) Negative (Negative) SARS-CoV-2 RNA (RT-PCR) Negative (Negative) Imaging Data Radiologist's impression: Impressions Chest X-Ray 04/17/25 13:38 IMPRESSION: COPD. Bibasilar opacities may represent atelectasis, scarring versus pneumonia in the appropriate clinical settings. Clinical correlation is recommended. Short-term chest radiograph is recommended after appropriate clinical therapy. Head CT 04/17/25 14:56 IMPRESSION: The left middle cerebral artery appears somewhat dense and may represent dense MCA sign in appropriate clinical settings of a acute stroke. CTA versus MRA can be performed for further evaluation, as clinically indicated. These findings were communicated to Aleyda Vieira MD by Dr. Xenia Andre, on 04/17/2025 14:56 CDT at who expressed understanding. Chest CT 04/17/25 16:20 IMPRESSION: 1. Extensive centrilobular emphysematous changes of the lungs. 2. Thickening of the septa in the lower lobes which may indicate pneumonitis. Follow-up advised. 3. Focal areas of atelectasis seen in the left upper lobe. The possibility of pleural base nodule cannot be excluded although less likely 6 months follow-up CT is advised. 4. Severe kyphosis. Multilevel old compression fractures. Head/Neck CTA 04/17/25 16:20 IMPRESSION: Percent stenosis per NASCET criteria is 0% bilaterally. A dense MCA sign is a valuable albeit not perfectly sensitive indicator of acute ischemic cerebral infarction. A hyperdense MCA may be seen with elevated hemoglobin (as in our patient) without pathology. Of concern, with this patient, is the aneurysmal dilatation of the central portions of the right internal carotid artery. In this patient's history. He describes a brain aneurysm, therefore prior imaging must be available (somewhere). Comparison is strongly recommended in order to evaluate the need for treatment. Typically, greater than 7 mm poses a high risk of rupture. Referral for endovascular treatment evaluation is recommended. These findings and recommendations were given to Dr. Vieira at 5:00 PM on 04/17/2025 ECG Data EKG #1: Attestation: I personally reviewed and interpreted this ECG as follows: ECG completion date: 04/17/25 ECG completion time: 13:03 Interpretation: Normal sinus rhythm at a rate of 85 beats per minute. GA interval 157. QRS 88. QT/QTC 346/388. Good R-wave progression across the precordial leads. Normal axis. No T-wave inversions. Normal ECG. Discharge Plan Discharge Clinical Impression: HUDSON (dyspnea on exertion), Dizziness, Atelectasis of left lung, Emphysema lung, Carotid artery aneurysm, Pneumonitis Patient Disposition: Home Condition: Stable Instructions: Antibiotic Form, Pneumonitis (ED), Carotid Artery Disease (DC), Emphysema (DC), Dyspnea (ED), Dizziness (ED), Atelectasis (ED) Additional Instructions: Seen on CT: Focal areas of atelectasis seen in the left upper lobe. The possibility of pleural base nodule cannot be excluded although less likely 6 months follow-up CT is advised.Your primary care physician can help arrange this. As we discussed, you have evidence of pneumonitis on your imaging as well. Continue taking your emphysema medications with the addition of the rest of the is a through my since you already been prescribed. Start taking this dose tomorrow. For the dizziness, short course of the benzodiazepine Valium is prescribed. We talked about the risks and benefits. In general, first-line would be maintaining your hydration especially when it is warm out. If you do take this medication be aware that you should take care to avoid falls. Follow-up with your primary care physician at your upcoming appointment. Get a referral to a neurosurgeon for outpatient follow-up of the carotid aneurysm. You are being given a disc if those images do not stay in your files through [facility]. Do not hesitate to return to the ED with new or worsening or unmanaged symptoms. You can follow-up with your external grinder tender as well. Patient Language: Algerian Prescriptions: New diazepam [Valium] 2 mg tablet 2 mg PO DAILY PRN (Reason: dizziness or vertigo) Qty: 5 0RF No Action fluticasone propion-salmeterol [Advair Diskus] 500-50 mcg/dose blister with device 1 inh INHALATION BID trazodone 150 mg tablet 75 mg PO HS PRN (Reason: SLEEP) albuterol sulfate 90 mcg/actuation HFA aerosol inhaler See Rx Instructions .ROUTE .COMPLEX Rx Instructions: 3 puff inhaled Zyrtec 10 mg Capsule 10 mg PO DAILY Incruse Ellipta 62.5 mcg/actuation blister with device 62.5 mcg INHALATION DAILY Vitamin D3 Complete 1 tab/day BYMOUTH DAILY multivitamin 1 tab/day BYMOUTH DAILY aspirin [Aspir-81] 81 mg Tablet,Delayed Release (Dr/Ec) 81 mg PO DAILY prednisone 10 mg tablet 10 mg PO DIRECTED Qty: 30 0RF Rx Instructions: 40mg a day x 3 days 30mg a day x 3 days 20mg a day x 3 days 10mg a day x 3 days azithromycin 250 mg tablet 250 mg PO DAILY 3 Days Qty: 3 0RF cefdinir 300 mg capsule 300 mg PO Q12H 5 Days Qty: 10 0RF doxycycline hyclate 100 mg capsule 100 mg PO DAILY Qty: 5 0RF Florastor 250 mg capsule 250 mg PO BID 7 Days Qty: 14 0RF Rx Instructions: swallow whole Follow-up/Referrals: UNKNOWN,DOCTOR [Primary Care Provider] - Stand Alone Forms: Work/School Release IP Time of Disposition: 18:28
[2025-04-17 14:45] LABS: Add Urine Microscopic? NO; Appearance Urine Clear (Clear); Bilirubin Urine Negative (Negative); Blood Urine Negative (Negative); Color Urine Yellow (Yellow); Glucose Urine UA Negative (Negative); Ketones Urine Negative (Negative); Leukocyte Esterase Ur Negative LEU/UL (Negative); Nitrate Urine Negative (Negative); Protein Urine Negative (Negative)
[2025-04-17 15:01] LABS: NT Pro B Type Natriuretic Pept 63 pg/mL (19.9-100)
[2025-04-17 15:08] LABS: D Dimer 0.32 ug/mL (<0.48)
[2025-04-17] MEDS: SODIUM CHLORIDE 0.9% IV 1,000 ML 999 ML IV CONT (15:09)
[2025-04-17] MEDS: MECLIZINE HCL 25 MG TABLET PO (15:09)
[2025-04-17 15:22] LABS: Influenza A QL RT-PCR Negative (Negative); Influenza B QL RT-PCR Negative (Negative); RSV RNA, RT-PCR Negative (Negative); SARS-CoV-2 RNA PCR Negative (Negative)
[2025-04-17 16:09] VITALS: PULSE 84; RESP 19
[2025-04-17] MEDS: IPRATROPIUM 0.5 MG/ALBUTEROL SULFATE 2.5 MG AMPUL.NEB 3 ML INHALATION (16:09)
[2025-04-17 16:20] VITALS: PULSE 84; RESP 20
[2025-04-17 16:57] VITALS: PULSE 95; RESP 20
[2025-04-17] MEDS: ALBUTEROL SULFATE NEB 2.5 MG/3 ML INH INHALATION (16:57)
[2025-04-17] MEDS: AZITHROMYCIN 250 MG TABLET 500 MG PO (17:08)
[2025-04-17] MEDS: diazePAM INJ (*CRX) 10 MG/2 ML SYRINGE 2.5 MG IV PUSH (17:08)
[2025-04-17 18:11] VITALS: BP 145/83; PULSE 99; RESP 22; O2SAT 95
[2025-04-17 18:51] VITALS: BP 101/86; PULSE 95; RESP 13; O2SAT 98
== END 2025-04-17 18:53 | disposition home or self-care (01) ==
PROVIDERS: Emergency Provider Student in an Organized Health Care Education/Training Program
DX: R42 Dizziness and giddiness (principal); J43.9 Emphysema, unspecified; J98.4 Other disorders of lung; I72.0 Aneurysm of carotid artery; J98.11 Atelectasis; R06.00 Dyspnea, unspecified; Z20.822 Contact with and (suspected) exposure to COVID-19; Z99.81 Dependence on supplemental oxygen; M06.9 Rheumatoid arthritis, unspecified; Z87.891 Personal history of nicotine dependence; Z79.82 Long term (current) use of aspirin; Z79.899 Other long term (current) drug therapy; M40.204 Unspecified kyphosis, thoracic region
CPT/HCPCS: 36415; 70450; 70496; 70498; 71046; 71250; 80053; 81003; 83880; 84484; 85025; 85380; 87637; 93005; 94640; 96361; 96374; 99284; A9270; J3360; J7030; Q9967